=== PATIENT | female | born 1950 | race Caucasian/White ===

== ENCOUNTER 2017-03-30 22:15 | Emergency (ER) | payer MEDICARE, MEDICAID ==
--- NOTE | 2017-03-30 22:42 | Emergency Department Record ---
History of Present Illness - General Chief complaint: ENT Stated complaint: FB RIGHT EAR Time Seen by Provider: 03/30/17 22:42 Source: Patient Mode of Arrival: Ambulatory - History of Present Illness Initial comments: Patient states that she felt a bug in her right ear tonight. She tried to dig it out with her finger with no success. [place] a buzz earlier. None now. No other complaints. MD complaint: Foreign body (right ear) Onset/Timin -: Minutes(s) Location: R ear Consistency: Intermittent Improves with: None Worsens with: None Context- Ear: Other - Related Data Home Medications Medication Instructions Recorded Confirmed Last Taken Aspirin [Aspirin EC] 81 mg PO DAILY 01/15/15 01/02/16 07/03/15 Atorvastatin Calcium [Lipitor] 40 mg PO QHS 01/15/15 01/02/16 07/02/15 Cetirizine HCl [Zyrtec] 10 mg PO DAILY 01/15/15 01/02/16 07/03/15 Cholecalciferol (Vitamin D3) 2,000 unit PO DAILY 01/15/15 01/02/16 07/03/15 [Vitamin D3] Citalopram Hydrobromide [Celexa] 20 mg PO DAILY 01/15/15 01/02/16 07/03/15 Ipratropium [place] [Atrovent Hfa] 2 puff INH QID 01/15/15 01/02/16 07/03/15 Metoprolol Tartrate [Lopressor] 50 mg PO BID 01/15/15 01/02/16 07/03/15 Bupropion HCl [Bupropion HCl Sr] 150 mg PO DAILY 01/02/16 01/02/16 Unknown Allergies Allergy/AdvReac Type Severity Reaction Status Date / Time morphine Allergy Intermediate ALTERED Verified 07/03/15 12:58 MENTAL STATUS Travel Screening - Travel/Exposure Within Last 30 Days Have you traveled within the last 30 days?: No Review of Systems Reviewed: No additional complaints except as noted below Constitutional: Reports: As per HPI. Denies: Chills, Fever, Malaise, Night sweats, Weakness, Weight change Eyes: Reports: As per HPI. Denies: Eye discharge, Eye pain, Photophobia, Vision change ENT: Reports: As per HPI. Denies: Congestion, Dental pain, Ear pain, Epistaxis , Hearing loss, Throat pain Respiratory: Reports: As per HPI. Denies: Cough, Dyspnea, Hemoptysis, Stridor, Wheezes Cardiovascular: Reports: As per HPI. Denies: Arrhythmia, Chest pain, Dyspnea on exertion, Edema, Murmurs, Orthopnea, Palpitations, Paroxysmal nocturnal dyspnea, Rheumatic Fever, Syncope Endocrine: Reports: As per HPI. Denies: Fatigue, Heat or cold intolerance, Polydipsia, Polyuria Gastrointestinal: Reports: As per HPI. Denies: Abdominal pain, Constipation, Diarrhea, Hematemesis, Hematochezia, Melena, Nausea, Vomiting Genitourinary: Reports: As per HPI. Denies: Abnormal menses, Discharge, Dyspareunia, Dysuria, Frequency, Hematuria, Incontinence, Retention, Urgency Musculoskeletal: Reports: As per HPI. Denies: Arthralgia, Back pain, Gout, Joint swelling, Myalgia, Neck pain Skin: Reports: As per HPI. Denies: Bruising, Change in color, Change in hair/ nails, Lesions, Pruritus, Rash Neurological: Reports: As per HPI. Denies: Abnormal gait, Confusion, Headache, Numbness, Paresthesias, Seizure, Tingling, Tremors, Vertigo, Weakness Psychiatric: Reports: As per HPI. Denies: Anxiety, Auditory hallucinations, Depression, Homicidal thoughts, Suicidal thoughts, Visual hallucinations Hematological/Lymphatic: Reports: As per HPI. Denies: Anemia, Blood Clots, Easy bleeding, Easy bruising, Swollen glands Past Medical History - SOCIAL HISTORY Smoking Status: Former smoker Alcohol Use: None Drug Use: None - RESPIRATORY Hx Respiratory Disorders: Yes Hx Asthma: Yes - CARDIOVASCULAR Hx Cardio Disorders: Yes Hx Deep Vein Thrombosis: Yes (2009) Hx Hypertension: Yes - NEURO Hx Neuro Disorders: No - GI Hx GI Disorders: No - Hx Genitourinary Disorders: No - ENDOCRINE Hx Endocrine Disorders: No - MUSCULOSKELETAL Hx Musculoskeletal Disorders: No - PSYCH Hx Psych Problems: No - HEMATOLOGY/ONCOLOGY Hx Hematology/Oncology Disorders: No Family Medical History Any Significant Family History?: Yes Hx HTN: Father, Mother Physical Exam - General General Appearance: Alert, Oriented x3, Cooperative, No acute distress - Head Head exam: Normal inspection - Eye Eye exam: Normal appearance, PERRL Pupils: Normal accommodation - ENT ENT exam: Normal exam, Mucous membranes moist, Normal external ear exam, Normal orophraynx, TM's normal bilaterally (right TM normal with old scarring, NO FB, canal with an eyelash laying midway deep.) Ear exam: Normal external inspection. negative: External canal tenderness Nasal Exam: Normal inspection. negative: Discharge, Sinus tenderness Mouth exam: Normal external inspection, Tongue normal Teeth exam: Normal inspection. negative: Dental caries Throat exam: Normal inspection. negative: Tonsillar erythema, Tonsillar exudate - Neck Neck exam: Normal inspection, Full ROM. negative: Tenderness - Respiratory Respiratory exam: Normal lung sounds bilaterally. negative: Respiratory distress - Cardiovascular Cardiovascular Exam: Regular rate, Normal rhythm, Normal heart sounds - GI/Abdominal GI/Abdominal exam: Soft, Normal bowel sounds. negative: Tenderness - Rectal Rectal exam: Deferred - exam: Deferred - Extremities Extremities exam: Normal inspection, Full ROM, Normal capillary refill. negative: Tenderness - Back Back exam: Reports: Normal inspection, Full ROM. Denies: Muscle spasm, Rash noted, Tenderness - Neurological Neurological exam: Alert, Normal gait, Oriented X3, Reflexes normal - Psychiatric Psychiatric exam: Normal affect, Normal mood - Skin Skin exam: Dry, Intact, Normal color, Warm Course Vital Signs 03/30/17 22:21 Temperature 98.4 F Pulse Rate [ 70 Pulse Ox Probe] Respiratory 20 Rate Blood Pressure 115/65 [Left Arm] Pulse Ox 99 Medical Decision Making - Management Options MDM Management: No Additional Work-up Planned Disposition Disposition: Discharge Clinical Impression: Ear foreign body Qualifiers: Encounter type: initial encounter Laterality: right Qualified Code(s): T16.1XXA - Foreign body in right ear, initial encounter Disposition: Home, Self-Care Condition: (1) Good Instructions: Otitis Externa (ED) Additional Instructions: Apply 2-3 drops three times daily for 5 days. tylenol or ibuprofen as directed as needed for pain. Follow up with PCP as needed. Forms: Patient Portal Access
[2017-03-30] MEDS ORDERED: NEOMYCIN/POLYMYXIN B SULF/HC 10ML BTL OT ONE (22:53)
== END 2017-03-30 23:04 | disposition home or self-care (01) ==
LOC: ER 22:15
DX: T16.1XXA Foreign body in right ear, initial encounter (principal)
CPT/HCPCS: 99282

== ENCOUNTER 2017-10-21 15:18 | Inpatient (IN) | payer MEDICAID, MEDICARE ==
[2017-10-21] MEDS ORDERED: ONDANSETRON HCL IV 4 MG/2 ML VIAL IV ONE (15:47)
[2017-10-21] MEDS ORDERED: 0.9 % SODIUM CHLORIDE 1,000 ML BAG IV ONE ×2 (15:47→19:01)
--- NOTE | 2017-10-21 15:56 | Emergency Department Record ---
History of Present Illness - General Chief complaint: Vomiting Stated complaint: COLD CHILLS,VOMITTING Time Seen by Provider: 10/21/17 15:40 Source: Patient Mode of Arrival: Wheelchair - History of Present Illness Initial comments: The patient has fever, chills, cough, and vomiting that began this afternoon. she also complains of body aches. MD complaint: Nausea, Vomiting Onset/Timin -: Days(s) Description of Vomiting: Food contents Consistency: Intermittent Improves with: None Worsens with: None Associated Symptoms: Cough, Nausea/vomiting - Related Data Home Medications Medication Instructions Recorded Confirmed Last Taken Lisinopril [Zestril] 5 mg PO DAILY 10/21/17 10/21/17 Unknown Allergies Allergy/AdvReac Type Severity Reaction Status Date / Time morphine Allergy Intermediate ALTERED Verified 07/03/15 12:58 MENTAL STATUS Travel Screening - Travel/Exposure Within Last 30 Days Have you traveled within the last 30 days?: No Review of Systems Reviewed: No additional complaints except as noted below Constitutional: Reports: As per HPI. Denies: Chills, Fever, Malaise, Night sweats, Weakness, Weight change Eyes: Reports: As per HPI. Denies: Eye discharge, Eye pain, Photophobia, Vision change ENT: Reports: As per HPI. Denies: Congestion, Dental pain, Ear pain, Epistaxis , Hearing loss, Throat pain Respiratory: Reports: As per HPI. Denies: Cough, Dyspnea, Hemoptysis, Stridor, Wheezes Cardiovascular: Reports: As per HPI. Denies: Arrhythmia, Chest pain, Dyspnea on exertion, Edema, Murmurs, Orthopnea, Palpitations, Paroxysmal nocturnal dyspnea, Rheumatic Fever, Syncope Endocrine: Reports: As per HPI. Denies: Fatigue, Heat or cold intolerance, Polydipsia, Polyuria Gastrointestinal: Reports: As per HPI. Denies: Abdominal pain, Constipation, Diarrhea, Hematemesis, Hematochezia, Melena, Nausea, Vomiting Genitourinary: Reports: As per HPI. Denies: Abnormal menses, Discharge, Dyspareunia, Dysuria, Frequency, Hematuria, Incontinence, Retention, Urgency Musculoskeletal: Reports: As per HPI. Denies: Arthralgia, Back pain, Gout, Joint swelling, Myalgia, Neck pain Skin: Reports: As per HPI. Denies: Bruising, Change in color, Change in hair/ nails, Lesions, Pruritus, Rash Neurological: Reports: As per HPI. Denies: Abnormal gait, Confusion, Headache, Numbness, Paresthesias, Seizure, Tingling, Tremors, Vertigo, Weakness Psychiatric: Reports: As per HPI. Denies: Anxiety, Auditory hallucinations, Depression, Homicidal thoughts, Suicidal thoughts, Visual hallucinations Hematological/Lymphatic: Reports: As per HPI. Denies: Anemia, Blood Clots, Easy bleeding, Easy bruising, Swollen glands Past Medical History - SOCIAL HISTORY Smoking Status: Former smoker Alcohol Use: None Drug Use: None - RESPIRATORY Hx Respiratory Disorders: Yes Hx Asthma: Yes - CARDIOVASCULAR Hx Cardio Disorders: Yes Hx Deep Vein Thrombosis: Yes (2009) Hx Hypertension: Yes - NEURO Hx Neuro Disorders: No - GI Hx GI Disorders: No - Hx Genitourinary Disorders: No - ENDOCRINE Hx Endocrine Disorders: No - MUSCULOSKELETAL Hx Musculoskeletal Disorders: No - PSYCH Hx Psych Problems: No - HEMATOLOGY/ONCOLOGY Hx Hematology/Oncology Disorders: No Family Medical History Any Significant Family History?: Yes Hx HTN: Father, Mother Physical Exam - General General Appearance: Alert, Oriented x3, Cooperative, Mild distress - Head Head exam: Normal inspection - Eye Eye exam: Normal appearance, PERRL, EOMI. negative: Conjunctival injection, Nystagmus Pupils: Normal accommodation - ENT ENT exam: Normal exam, Mucous membranes dry, Mucous membranes moist, Normal external ear exam, Normal orophraynx, TM's normal bilaterally Ear exam: Normal external inspection. negative: External canal tenderness Nasal Exam: Normal inspection. negative: Discharge, Sinus tenderness Mouth exam: Normal external inspection, Tongue normal Teeth exam: Normal inspection. negative: Dental caries Throat exam: Normal inspection. negative: Tonsillar erythema, Tonsillar exudate - Neck Neck exam: Normal inspection, Full ROM. negative: Lymphadenopathy, Meningismus , Tenderness - Respiratory Respiratory exam: Normal lung sounds bilaterally. negative: Accessory muscle use, Chest wall tenderness, Prolonged expiratory, Respiratory distress - Cardiovascular Cardiovascular Exam: Normal rhythm, Normal heart sounds, Tachycardia - GI/Abdominal GI/Abdominal exam: Soft, Normal bowel sounds. negative: Tenderness - Rectal Rectal exam: Deferred - exam: Deferred - Extremities Extremities exam: Normal inspection, Full ROM, Normal capillary refill. negative: Calf tenderness, Pedal edema, Tenderness - Back Back exam: Reports: Normal inspection, Full ROM. Denies: Muscle spasm, Rash noted, Tenderness - Neurological Neurological exam: Alert, Normal gait, Oriented X3, Reflexes normal - Psychiatric Psychiatric exam: Normal affect, Normal mood - Skin Skin exam: Dry, Intact, Normal color, Warm Course Vital Signs 10/21/17 15:40 Temperature 100.5 F H Pulse Rate 129 H Respiratory 20 Rate Blood Pressure 118/83 Pulse Ox 96 - Reevaluation(s) Reevaluation #1: Patient vomited but had not yet had her zofran. Zofran given HR remains rapid at 116. Patient has a dry cough. 10/21/17 17:39 Reevaluation #2: 10/21/17 19:05 d dimer elevated, CTA ordered at shift change. Dr. Alvarez to assume care. Reevaluation #3: Pulse improved to just over 100, CTA cancelled at Dr. Alvarez's request. Will admit. Dr. Bunch who agrees with plan per phone conversation. 10/21/17 19:05 10/21/17 19:09 10/21/17 19:13 Medical Decision Making - Management Options MDM Management: Additional Work-up Planned (e.g. ADM/Transfer/OP Study) (admit to Dr. Bunch full admit) - Data Complexity MDM Data: Labs Ordered and/or Reviewed, X-Ray Ordered and/or Reviewed - Lab Data Result diagrams: 10/21/17 16:00 10/21/17 16:00 Disposition Disposition: Admit Clinical Impression: Fever and chills Sepsis Qualifiers: Sepsis type: sepsis due to unspecified organism Qualified Code(s): A41.9 - Sepsis, unspecified organism Disposition: Still a Patient at [facility] Decision to Admit: Admit from ER Decision to Admit Date: 10/21/17 Decision to Admit Time: 19:18 Accepting Physician: Dr. Bunch Time Discussed w/Accepting Physician: 19:18 Quality - Quality Measures Quality Measures: N/A - Blood Pressure Screening Does Patient Have Any of the Following: No Blood Pressure Classification: Pre-Hypertensive BP Reading Systolic Measurement: 118 Diastolic Measurement: 83 Screening for High Blood Pressure: < Normal BP, F/U Not Required > [[id number]]
[2017-10-21 16:14] LABS: INFLUENZA A NEGATIVE (NEGATIVE); INFLUENZA B NEGATIVE (NEGATIVE)
[2017-10-21 16:14] LABS: HEMATOCRIT 43.6 % (35.0-47.0); HEMOGLOBIN 14.8 gm/dl (11.6-16.0); MEAN CELL VOLUME 95.4 fl (81-97); MEAN CORPUSCULAR HEMOGLOBIN 32.4 pg (27-33); MEAN CORPUSCULAR HGB CONC 33.9 g/dl (32-36); MEAN PLATELET VOLUME 9.6 fl (7.4-10.4); PLATELET COUNT 287 K/uL (130-400); RED BLOOD COUNT 4.57 M/uL (3.80-5.40); RED CELL DISTRIBUTION WIDTH 12.3 % (11.5-14.5); WHITE BLOOD COUNT W/O DIFF 15.9 K/uL (4.2-12.2)
[2017-10-21 16:29] LABS: BLOOD UREA NITROGEN 15 mg/dL (8-23); CREATININE 0.8 mg/dL (0.5-0.9); EST GLOMERULAR FILTRATION RATE > 60 mL/min
[2017-10-21 16:30] LABS: TOTAL PROTEIN 7.8 g/dL (6.6-8.7)
[2017-10-21 16:32] LABS: GLUCOSE,RANDOM 114 mg/dL (74-109)
[2017-10-21 16:34] LABS: ALB/GLOB RATIO 1.2 (1.1-1.8); ALBUMIN 4.3 g/dL (4.0-5.0); ALKALINE PHOSPHATASE 117 U/L (35-104); ALT/SGPT 16 U/L (<33); AST/SGOT 18 U/L (10.0-35.0); LIPASE 44 U/L (13-60)
[2017-10-21] MEDS ORDERED: ACETAMINOPHEN 500 MG TABLET PO ONE (17:00)
[2017-10-21] MEDS ORDERED: CEFTRIAXONE SODIUM 2 GM in 0.9 % SODIUM CHLORIDE 100ML 100 ML IVPB ONE (19:14)
[2017-10-21] MEDS ORDERED: AZITHROMYCIN 500 MG TABLET PO ONE (19:14)
[2017-10-21] MEDS ORDERED: IBUPROFEN 600 MG TABLET PO ONE (19:15)
[2017-10-21 19:17] LABS: URINE BILIRUBIN NEGATIVE (NEGATIVE); URINE BLOOD SMALL (NEGATIVE); URINE COLOR YELLOW; URINE GLUCOSE (UA) NEGATIVE (NEGATIVE); URINE KETONE NEGATIVE (NEGATIVE); URINE LEUKOCYTE ESTERASE SMALL (NEGATIVE); URINE NITRITE POSITIVE (NEGATIVE); URINE PROTEIN TRACE (NEGATIVE); URINE UROBILINOGEN 0.2 E.U./dL (0.20 - 1.00)
[2017-10-21 19:19] LABS: URINE APPEARANCE CLOUDY
[2017-10-21 19:25] LABS: URINE EPITHELIAL CELLS 0 - 2 (FEW); URINE WBC >50 (0-2/hpf)
[2017-10-21 19:26] LABS: URINE BACTERIA 2+
--- NOTE | 2017-10-21 19:46 | RADIOLOGY REPORT ---
EXAM: CHEST 2 VIEWS HISTORY: COUGH, FEVERS, AND CHILLS. TECHNIQUE: PA and lateral upright views of the chest were obtained. COMPARISON: 01/15/2015. FINDINGS: There are low lung volumes. The heart is normal in size. There is calcification of the aorta. The mediastinum and pulmonary vasculature are normal. There are no visible acute infiltrates or effusions. There is no pneumothorax. Degenerative changes are present within the spine and shoulders. There is chronic compression of a single lower thoracic vertebral body. IMPRESSION: 1. LOW LUNG VOLUMES. 2. NO ACUTE CHEST PATHOLOGY. JOB NUMBER: [id number] MTDD
[2017-10-21] MEDS ORDERED: 0.9 % SODIUM CHLORIDE 1000ML 1,000 ML IV PRN (19:57)
[2017-10-21] MEDS ORDERED: CEFTRIAXONE SODIUM 1 GM in 0.9 % SODIUM CHLORIDE 100ML 100 ML IVPB SCH (19:57)
[2017-10-21] MEDS ORDERED: IPRATROPIUM BR 0.02% NEB (0.5MG) INH PRN (21:15)
[2017-10-21] MEDS: METOPROLOL TART 50 MG TABLET PO SCH (21:30)
[2017-10-21] MEDS: ALBUTEROL SULFATE (0.083%) 2.5 MG/3 ML NEB INH SCH (22:10)
[2017-10-22] MEDS: ALBUTEROL SULFATE (0.083%) 2.5 MG/3 ML NEB INH SCH ×2 (05:10→12:30)
[2017-10-22] MEDS: ACETAMINOPHEN 500 MG TABLET PO PRN ×3 (06:12→21:52)
[2017-10-22 06:19] LABS: HEMATOCRIT 40.3 % (35.0-47.0); HEMOGLOBIN 13.7 gm/dl (11.6-16.0); LYMPH % 6.7 % (16-45); MEAN CELL VOLUME 98.1 fl (81-97); MEAN CORPUSCULAR HEMOGLOBIN 33.3 pg (27-33); MEAN PLATELET VOLUME 9.4 fl (7.4-10.4); MONO % 0.7 % (0-9); PLATELET COUNT 269 K/uL (130-400); RED BLOOD COUNT 4.11 M/uL (3.80-5.40); RED CELL DISTRIBUTION WIDTH 12.7 % (11.5-14.5)
[2017-10-22 06:23] LABS: WHITE BLOOD COUNT W/O DIFF 20.6 K/uL (4.2-12.2)
[2017-10-22 06:38] LABS: ALB/GLOB RATIO 1.2 (1.1-1.8); ALBUMIN 3.8 g/dL (4.0-5.0); ALKALINE PHOSPHATASE 99 U/L (35-104); ALT/SGPT 14 U/L (<33); AST/SGOT 17 U/L (10.0-35.0); BLOOD UREA NITROGEN 18 mg/dL (8-23); CREATININE 0.9 mg/dL (0.5-0.9); EST GLOMERULAR FILTRATION RATE > 60 mL/min; GLUCOSE,RANDOM 111 mg/dL (74-109); TOTAL PROTEIN 7.1 g/dL (6.6-8.7)
--- NOTE | 2017-10-22 08:45 | History & Physical ---
History of Present Illness - Date of Service Date of Service for History & Physical: 10/22/17 - History of Present Illness Admitting Diagnosis: Sepsis; fever and chills, respiratory distress History of Present Illness: Edgar is a 66 year-old female who was admitted for UTI sepsis. Her history includes: asthma, ex-smoker, HTN, depression, dvt and tracheostomy and g-tube. She was admitted at [facility] for over 1 month in 2012 for sepsis due to kenny, CMV, and UTI, she was placed on a ventilator for ARDS and eventually required trach and G-tube. She required several months of rehab at a facility in [place]. She was admitted again in 04/2017 for UTI and cardiac workup- she had a negative physiologic stress test. Pt. is unsure of any other pertinent health history. Yesterday afternoon, she began to experience fever, body aches, vomiting, and cough. She presented to the ED and her vital signs were BP 118/83, HR 129, RR 20, 96% on room air and 100.5F. Chest x-ray was unremarkable and negative for infiltrates. Laboratory findings inlcluded: WBC 15.9, d-dimer 1.28, and lactic acid of 3.6. Her urinalysis was positive for leuks. Blood cultures were obtained and urine was sent for culture. She was admitted for management of sepsis from UTI with IV antibiotics. 10/22/17: Pt. is resting comfortably in bed. She presently denies pain, cough, nausea, and vomiting. She states that she does still experience chills. She denies urinary complaints, including dysuria, retention, and urgency. She is concerned about a rash under bilateral breasts. She did have an elevated temp this morning of 99.4F, it was treated with 1000mg tylenol and decreased to 98.3F. Her WBC increased from 15.9 to 20.6 this morning. Plan to continue IV rocephin 1000mg q12h and azithromycin 250mg daily. Ordered repeat lactic acid and lower extremity dopplers today. Travel Screening - Travel/Exposure Within Last 30 Days Have you traveled within the last 30 days?: No - Travel/Exposure Within Last Year Have you traveled outside the [place] in the last year?: No - Additonal Travel Details Have you been exposed to anyone with a communicable illness?: No - Travel Symptoms Symptom Screening: Fever (GT 100.4), Vomiting Review of Systems Constitutional: Reports: Chills, Fever, Malaise, Night sweats. Denies: Weakness , Weight change Eyes: Reports: As per HPI. Denies: Eye discharge, Eye pain, Photophobia, Vision change ENT: Reports: As per HPI. Denies: Congestion, Dental pain, Ear pain, Epistaxis , Hearing loss, Throat pain Respiratory: Reports: Cough. Denies: Dyspnea, Hemoptysis, Stridor, Wheezes Cardiovascular: Reports: As per HPI. Denies: Arrhythmia, Chest pain, Dyspnea on exertion, Edema, Murmurs, Orthopnea, Palpitations, Paroxysmal nocturnal dyspnea, Rheumatic Fever, Syncope Endocrine: Reports: As per HPI. Denies: Fatigue, Heat or cold intolerance, Polydipsia, Polyuria Gastrointestinal: Reports: Nausea, Vomiting. Denies: Abdominal pain, Constipation, Diarrhea, Hematemesis, Hematochezia, Melena Genitourinary: Reports: As per HPI. Denies: Abnormal menses, Discharge, Dyspareunia, Dysuria, Frequency, Hematuria, Incontinence, Retention, Urgency Musculoskeletal: Reports: As per HPI. Denies: Arthralgia, Back pain, Gout, Joint swelling, Myalgia, Neck pain Skin: Reports: As per HPI. Denies: Bruising, Change in color, Change in hair/ nails, Lesions, Pruritus, Rash Neurological: Reports: As per HPI. Denies: Abnormal gait, Confusion, Headache, Numbness, Paresthesias, Seizure, Tingling, Tremors, Vertigo, Weakness Psychiatric: Reports: As per HPI. Denies: Anxiety, Auditory hallucinations, Depression, Homicidal thoughts, Suicidal thoughts, Visual hallucinations Hematological/Lymphatic: Reports: As per HPI. Denies: Anemia, Blood Clots, Easy bleeding, Easy bruising, Swollen glands Past Medical History - SOCIAL HISTORY Smoking Status: Former smoker Alcohol Use: None Drug Use: None - RESPIRATORY Hx Respiratory Disorders: Yes Hx Asthma: Yes - CARDIOVASCULAR Hx Cardio Disorders: Yes Hx Deep Vein Thrombosis: Yes (2009) Hx Hypertension: Yes - NEURO Hx Neuro Disorders: No - GI Hx GI Disorders: No - Hx Genitourinary Disorders: No - ENDOCRINE Hx Endocrine Disorders: No - MUSCULOSKELETAL Hx Musculoskeletal Disorders: No - PSYCH Hx Psych Problems: No - HEMATOLOGY/ONCOLOGY Hx Hematology/Oncology Disorders: No Family Medical History Any Significant Family History?: Yes Hx HTN: Father, Mother H&P Meds/Allergies - Allergies Allergies: Allergies Allergy/AdvReac Type Severity Reaction Status Date / Time morphine Allergy Intermediate ALTERED Verified 07/03/15 12:58 MENTAL STATUS - Home Medications Home Medications Medication Instructions Recorded Confirmed Last Taken Lisinopril [Zestril] 5 mg PO DAILY 10/21/17 10/21/17 Unknown - Active Medications Active Medications: Current Medications Acetaminophen (Tylenol 500mg Tab) 1,000 mg PO Q6H PRN PRN Reason: PAIN/TEMP Last Admin: 10/22/17 06:12 Dose: 1,000 mg Albuterol Sulfate () 2.5 mg INH RESP.Q4H.[facility] Last Admin: 10/22/17 05:10 Dose: 2.5 mg Aspirin (Ecotrin (Ec)) 81 mg PO DAILY [facility] Azithromycin (Zithromax) 500 mg PO DAILY [facility] Citalopram Hydrobromide (Celexa) 40 mg PO DAILY [facility] Sodium Chloride () 1,000 mls @ 125 mls/hr IV .Q8H PRN PRN Reason: LARGE VOLUME IV Ceftriaxone Sodium 1 gm/ (Sodium Chloride) 100 mls @ 100 mls/hr IVPB Q24H [facility] Stop: 10/27/17 20:01 Ipratropium [place] (Atrovent 0.02% Neb) 2.5 ml INH Q6H PRN PRN Reason: Bronchospasm Lisinopril (Zestril) 5 mg PO DAILY [facility] Metoprolol Tartrate (Lopressor) 50 mg PO BID [facility] Last Admin: 10/21/17 21:30 Dose: 50 mg Physical Exam - Vital Signs Vital Signs: Vital Signs - Last 24 Hrs Temp Pulse Pulse Pulse Resp BP BP 10/22/17 07:44 98.3 F 83 18 120/55 10/22/17 06:16 99.4 F 10/22/17 05:53 96.1 F L 10/22/17 05:10 68 20 10/21/17 22:10 67 20 10/21/17 21:00 74 78 18 10/21/17 20:10 99.5 F 106 H 18 103/66 10/21/17 19:59 100.0 F H 98 H 20 94/64 Pulse Ox 10/22/17 07:44 95 10/22/17 06:16 01/23/18 05:53 10/22/17 05:10 10/21/17 22:10 10/21/17 21:00 10/21/17 20:10 98 10/21/17 19:59 96 - General General Appearance: Alert, Oriented x3, Cooperative, No acute distress, Other ( poor historian) Limitations: No limitations - Head Head exam: Normal inspection - Eye Eye exam: Normal appearance, PERRL, EOMI. negative: Conjunctival injection, Nystagmus Pupils: Normal accommodation - ENT ENT exam: Normal exam, Mucous membranes moist, Normal external ear exam, Normal orophraynx Ear exam: Normal external inspection. negative: External canal tenderness Nasal Exam: Normal inspection. negative: Discharge, Sinus tenderness Mouth exam: Normal external inspection, Tongue normal Teeth exam: Normal inspection. negative: Dental caries Throat exam: Normal inspection. negative: Tonsillar erythema, Tonsillar exudate - Neck Neck exam: Normal inspection. negative: Lymphadenopathy, Meningismus, Tenderness - Respiratory Respiratory exam: Normal lung sounds bilaterally. negative: Accessory muscle use, Chest wall tenderness, Prolonged expiratory, Respiratory distress - Cardiovascular Cardiovascular Exam: Normal rhythm, Normal heart sounds - GI/Abdominal GI/Abdominal exam: Soft, Normal bowel sounds. negative: Tenderness - Rectal Rectal exam: Deferred - exam: Deferred - Extremities Extremities exam: Normal inspection, Full ROM, Normal capillary refill. negative: Calf tenderness, Pedal edema, Tenderness - Back Back exam: Reports: Normal inspection, Full ROM. Denies: Muscle spasm, Rash noted, Tenderness - Neurological Neurological exam: Alert, Normal gait, Oriented X3, Reflexes normal - Psychiatric Psychiatric exam: Normal affect, Normal mood - Skin Skin exam: Intact, Rash, Warm Type of lesion: Rash Distribution of rash: Other (under bilateral breasts and groin ) Description of rash: Erythematous. negative: Discharge, Tenderness Results - Labs Result Diagrams: 10/22/17 06:12 10/22/17 06:12 Labs Last 24 Hours: Laboratory Results - last 24 hr 10/22/17 10/22/17 06:12 06:12 WBC 20.6 H* RBC 4.11 Hgb 13.7 Hct 40.3 MCV 98.1 H MCH 33.3 H MCHC 34.0 RDW 12.7 Plt Count 269 MPV 9.4 Neutrophils % 90.0 H Band Neutrophils % 0.0 Lymphocytes % 6.7 L Monocytes % 0.7 Eosinophils % 0.0 Basophils % 0.0 Lymphocytes 9.0 L Monocytes 1.0 Basophils 0.0 Eosinophil Count 0.0 Sodium 141 Potassium 4.0 Chloride 104 Carbon Dioxide 21.0 L Anion Gap 16.0 BUN 18 Creatinine 0.9 Estimated GFR > 60 Random Glucose 111 H Calcium 8.2 L Total Bilirubin 0.50 AST 17 ALT 14 Alkaline Phosphatase 99 Total Protein 7.1 Albumin 3.8 L Globulin 3.3 Albumin/Globulin Ratio 1.2 VTE H&P Assessment - Risk for VTE Risk for VTE: Yes Risk Level: Moderate Risk Assessment Date: 10/22/17 (history of DVT in 2012) Risk Assessment Time: 10:55 VTE Orders Placed or Will Be Placed: Yes Plan - Inpatient Certification Inpatient Certification: Admit to inpatient care: Based on my medical assessment, after consideration of patient's risk factors (age, co-morbidities and patient presenting symptoms and acuity), I expect that this patient will remain in the hospital greater than or equal to two midnights and that the services needed warrant inpatient care because: Patient Risk Factors: [history of urosepsis and respiratory failure] Estimated length of stay: [48-72 hours] The patient may reasonably be expected to be discharged or transferred to a hospital within 96 hours after admission to [facility]. Services needed: [iv antibiotics, lab and cardiac monitoring] Post hospital care (if known): [] I certify that my determination is in accordance with my understanding of Medicare requirements for reasonable and necessary inpatient services. 10/22/17 11:21 - Detailed Diagnosis and Plan (1) Sepsis secondary to UTI Current Visit: Yes Status: Acute Base Code: A41.9 - SEPSIS, UNSPECIFIED ORGANISM; N39.0 - URINARY TRACT INFECTION, SITE NOT SPECIFIED Priority: High Comment: 10/22/17: Positive UA in ED on 10/21 (trace protein, small blood, pos nitrates, small leuks). Urine was sent for culture. WBC elevated from 15.9 in ED to 20.6 today. Pt. has been intermittently febrile- 99.4 this morning, treated with tylenol. Continue IV antibiotics: rocephin 1gm q12h and azithromycin 500mg qd. Continue 0.9% NaCl at 125ml/hr. (2) Yeast infection of the skin Current Visit: Yes Status: Acute Base Code: B37.2 - CANDIDIASIS OF SKIN AND NAIL Comment: 10/22/17: Yeast rash under bilateral breasts and groin folds. Start nystatin powder 2-3 times dialy. (3) Asthma Current Visit: Yes Status: Acute Base Code: J45.909 - UNSPECIFIED ASTHMA, UNCOMPLICATED Comment: 10/22/17: Pt. presented to ED on 10/21 with cough, uses atrovent hfa 2 puffs qid prn cough for asthma at home. Chest x-ray in ED negative for infiltrates. Cough has now resolved, however, continuing inh: scheduled albuterol 2.5mg q4h inh and atrovent hfa inh q6h prn. (4) At risk for deep venous thrombosis Current Visit: Yes Status: Acute Base Code: Z91.89 - OTH PERSONAL RISK FACTORS, NOT ELSEWHERE CLASSIFIED Priority: High Comment: 10/22/17- Elevated D dimer in ED on 10/21: 1.28. 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 Pt. currently denies any extremity pain/ tenderness/swelling. LE venous dopplers ordered today. Will start lovenox 40mg sc daily. (5) Full code status Current Visit: Yes Status: Acute Base Code: Z78.9 - OTHER SPECIFIED HEALTH STATUS Comment: 10/22/17- Pt. is full code status
[2017-10-22] MEDS: AZITHROMYCIN 500 MG TABLET PO SCH (09:43)
[2017-10-22] MEDS: ASPIRIN 81 MG TABEC PO SCH (09:43)
[2017-10-22] MEDS: CITALOPRAM 20 MG TABLET PO SCH (09:43)
[2017-10-22] MEDS: METOPROLOL TART 50 MG TABLET PO SCH ×2 (09:43→21:13)
[2017-10-22] MEDS: LISINOPRIL 5 MG TABLET PO SCH (09:45)
[2017-10-22] MEDS ORDERED: CITALOPRAM 20 MG TABLET PO SCH (10:00)
[2017-10-22] MEDS: ALBUTEROL HFA 8 GM INHALER INH SCH ×4 (10:24→22:03)
[2017-10-22] MEDS ORDERED: NYSTATIN 15 GM POWDER TP PRN (10:38)
[2017-10-22] MEDS: ENOXAPARIN 40 MG/0.4 ML SYR SQ SCH (12:06)
[2017-10-22] MEDS: CEFTRIAXONE SODIUM 1 GM in 0.9 % SODIUM CHLORIDE 100ML 100 ML IVPB SCH ×2 (13:35→21:13)
[2017-10-22] MEDS ORDERED: CEFTRIAXONE SODIUM 1 GM in 0.9 % SODIUM CHLORIDE 100ML 100 ML IVPB SCH (20:00)
[2017-10-22] MEDS ORDERED: DIPHENHYDRAMINE HCL 25 MG CAPSULE PO PRN (23:38)
[2017-10-23] MEDS: ACETAMINOPHEN 500 MG TABLET PO PRN ×3 (03:52→19:28)
[2017-10-23] MEDS: ALBUTEROL HFA 8 GM INHALER INH SCH ×5 (05:45→22:27)
[2017-10-23 06:38] LABS: BASO % 0.1 % (0-6); EOS % 0.5 % (0-6); HEMATOCRIT 34.3 % (35.0-47.0); HEMOGLOBIN 11.1 gm/dl (11.6-16.0); LYMPH % 15.7 % (16-45); MEAN CELL VOLUME 99.7 fl (81-97); MEAN CORPUSCULAR HGB CONC 32.4 g/dl (32-36); MEAN PLATELET VOLUME 10.2 fl (7.4-10.4); MONO % 7.7 % (0-9); PLATELET COUNT 223 K/uL (130-400); RED BLOOD COUNT 3.44 M/uL (3.80-5.40); RED CELL DISTRIBUTION WIDTH 13.1 % (11.5-14.5); WHITE BLOOD COUNT W/O DIFF 16.2 K/uL (4.2-12.2)
[2017-10-23 06:43] LABS: MEAN CORPUSCULAR HEMOGLOBIN 32.2 pg (27-33)
[2017-10-23 07:14] LABS: ALB/GLOB RATIO 1.1 (1.1-1.8); ALBUMIN 2.9 g/dL (4.0-5.0); ALKALINE PHOSPHATASE 77 U/L (35-104); ALT/SGPT 11 U/L (<33); AST/SGOT 11 U/L (10.0-35.0); BLOOD UREA NITROGEN 9 mg/dL (8-23); CREATININE 0.7 mg/dL (0.5-0.9); EST GLOMERULAR FILTRATION RATE > 60 mL/min; GLUCOSE,RANDOM 89 mg/dL (74-109); TOTAL PROTEIN 5.6 g/dL (6.6-8.7)
[2017-10-23] MEDS: ASPIRIN 81 MG TABEC PO SCH (09:08)
[2017-10-23] MEDS: METOPROLOL TART 50 MG TABLET PO SCH ×3 (09:08→21:57)
[2017-10-23] MEDS: ENOXAPARIN 40 MG/0.4 ML SYR SQ SCH (09:08)
[2017-10-23] MEDS: CITALOPRAM 20 MG TABLET PO SCH (09:08)
[2017-10-23] MEDS: AZITHROMYCIN 500 MG TABLET PO SCH (09:09)
[2017-10-23] MEDS: CEFTRIAXONE SODIUM 1 GM in 0.9 % SODIUM CHLORIDE 100ML 100 ML IVPB SCH ×2 (09:11→21:56)
[2017-10-23] MEDS: LISINOPRIL 5 MG TABLET PO SCH (09:14)
--- NOTE | 2017-10-23 10:38 | US VENOUS DOPPLER REPORT ---
EXAM: BILATERAL VENOUS DOPPLER ULTRASOUND OF THE LOWER EXTREMITIES HISTORY: ELEVATED D-DIMER, SHARP PAINS IN BOTH FEET, HISTORY OF PRIOR RIGHT SIDED DVT. TECHNIQUE: Venous Doppler ultrasound of the lower extremities was performed bilaterally. Color flow and spectral analysis was utilized throughout with compression and flow augmentation maneuvers utilizing the thigh and popliteal regions bilaterally. Comparison: None. FINDINGS: On the right, flow is seen throughout with no evidence of DVT. Compressibility and flow augmentation seen within the thigh and popliteal region as well. On the left, flow is also seen throughout. Flow augmentation and compressibility was evident in the thigh and popliteal regions as well. The venous anatomy was evaluated from the inguinal regions down to the ankles bilaterally. IMPRESSION: NEGATIVE VENOUS DOPPLER ULTRASOUND OF THE LOWER EXTREMITIES BILATERALLY WITH NO EVIDENCE OF DVT ON EITHER SIDE. JOB NUMBER: [id number] MTDD
[2017-10-24 00:07] LABS: ARTERIAL BLD GAS O2 SATURATION 91.2 % (95-98); ARTERIAL BLOOD GAS BASE EXCESS -2.9 mmol/L (-2 - 3); ARTERIAL BLOOD GAS HCO3 21.3 mmol/L (18-23); ARTERIAL BLOOD GAS PCO2 36.7 mmHg (35-48); ARTERIAL BLOOD GAS pH 7.38 (7.35-7.45); CARBOXYHEMOGLOBIN 1.5 % (0-1.5); METHEMOGLOBIN 0.4 % (0.0-1.5); O2 HEMOGLOBIN 89.5 % vol (94-99); TOTAL HEMOGLOBIN 11.3 g/dl (11.6-16)
[2017-10-24 00:08] LABS: ALLEN TEST PASS
[2017-10-24] MEDS ORDERED: IPRATROPIUM/ALBUTEROL (0.5MG/3MG) NEB INH ONE (00:33)
--- NOTE | 2017-10-24 00:52 | Discharge Summary ---
Providers Discharge Summary Date: 10/24/17 Date of admission: 10/21/17 19:50 Expected Date of Discharge: 10/24/17 Attending physician: Art Garcia Physical Exam - Vital Signs Vital Signs: Vital Signs - Last 24 Hrs Temp Pulse Pulse Pulse Resp BP Pulse Ox 10/23/17 22:28 88 16 10/23/17 22:00 99.2 F 78 18 157/75 93 L 10/23/17 21:00 90 94 H 20 10/23/17 20:00 100.5 F H 145 H 18 160/81 92 L 10/23/17 18:01 78 16 90 L 10/23/17 15:07 84 16 10/23/17 09:14 70 16 97 10/23/17 08:28 59 L 55 L 18 10/23/17 08:00 99.0 F 71 18 147/69 98 - General General Appearance: Other (did not perform physical exam as I was not in house during patient's acute care transfer) Hospitalization - Hospitalization Admission Diagnosis: Sepsis; fever and chills, respiratory distress - Problem List/Discharge Diagnosis (1) Acute respiratory distress Status: Acute Base Code: R06.03 - ACUTE RESPIRATORY DISTRESS Comment: : patient became hypoxic this evening around midnight. Repeat CXR revealed: diffuse b/l pulm infiltrates. AB.38, PCO2 36.7, PO2 52, HCO3 21.3. Dr. Alvarez, our ED physician, gave a breathing treatment and placed pt on BIPAP. work of breathing improved. O2 up to 95% on BIPAP. Dr. Alvarez and I both spoke with Dr. Molina from [facility] who accepted patient to their SDU. Patient stable for discharge. She was transported w/ BIPAP. (2) Asthma Status: Acute Base Code: J45.909 - UNSPECIFIED ASTHMA, UNCOMPLICATED Comment : 10/24/17: Pt. presented to ED on 10/21 with cough, uses atrovent hfa 2 puffs qid prn cough for asthma at home. Chest x-ray in ED negative for infiltrates. patient became hypoxic this evening. Repeat CXR revealed: b/l diffuse pulm infiltrates . AB.38, PCO2 36.7, PO2 52, HCO3 21.3. Dr. Alvarez, our ED physician, gave a breathing treatment and placed pt on BIPAP. work of breathing improved. Dr. Alvarez and I both spoke with Dr. Molina from [facility] who accepted patient to their SDU. Patient stable for discharge. She was transported w/ BIPAP. (3) Sepsis secondary to UTI Status: Acute Base Code: A41.9 - SEPSIS, UNSPECIFIED ORGANISM; N39.0 - URINARY TRACT INFECTION, SITE NOT SPECIFIED Comment: 10/24/17: Positive UA in ED on 10/21 (trace protein, small blood, pos nitrates, small leuks). Urine culture pending. WBC 20.6- 16.2. Pt intermittently febrile- 99.4 this morning , treated with tylenol. Continue IV antibiotics: rocephin 1gm q12h and azithromycin 500mg qd. Continue IVFs. (4) Yeast infection of the skin Status: Acute Base Code: B37.2 - CANDIDIASIS OF SKIN AND NAIL Comment: : nystatin powder 2-3 times dialy. (5) Full code status Status: Acute Base Code: Z78.9 - OTHER SPECIFIED HEALTH STATUS Comment: 10/24- full code - Hospitalization Course Disposition: Acute Care Hospital Transfer Hospital Course: Edgar is a 66 year-old female who was admitted for UTI sepsis. Her history includes: asthma, ex-smoker, HTN, depression, dvt and tracheostomy and g-tube. She was admitted at [facility] for over 1 month in 2012 for sepsis due to kenny , CMV, and UTI, she was placed on a ventilator for ARDS and eventually required trach and G-tube. She required several months of rehab at a facility in [place]. She was admitted again in 04/2017 for UTI and cardiac workup- she had a negative physiologic stress test. Pt. is unsure of any other pertinent health history. Yesterday afternoon, she began to experience fever, body aches, vomiting, and cough. She presented to the ED and her vital signs were BP 118/83, HR 129, RR 20, 96% on room air and 100.5F. Chest x-ray was unremarkable and negative for infiltrates. Laboratory findings inlcluded: WBC 15.9, d-dimer 1.28, and lactic acid of 3.6. Her urinalysis was positive for leuks. Blood cultures were obtained and urine was sent for culture. She was admitted for management of sepsis from UTI with IV antibiotics. 10/22/17- Pt. is resting comfortably in bed. She presently denies pain, cough, nausea, and vomiting. She states that she does still experience chills. She denies urinary complaints, including dysuria, retention, and urgency. She is concerned about a rash under bilateral breasts. She did have an elevated temp this morning of 99.4F, it was treated with 1000mg tylenol and decreased to 98.3F. Her WBC increased from 15.9 to 20.6 this morning. Plan to continue IV rocephin 1000mg q12h and azithromycin 250mg daily. Ordered repeat lactic acid and lower extremity dopplers today. 10/23 10:00 am- patient lying in bed. states she's tired as she did not sleep well on the bed the night before. states she had a sore throat in the middle of the night but it resolved. she denies cough, sob, william, fever, chills, n/v, abd pain, calf pain or dysuria. She feels nystatin powder is helping with rash under both breasts. 10/23 1300- patient evaluated by Brandy, a DRIVER EDUCATION INSTRUCTOR working on the floor with me. Pt told Brandy that her cough had returned and she was having rib pain from coughing. 10/24 1:00 am- Patient's nurse called me around mid night indicating patient was having a hard time breathing and HR was increasing. Stat CXR and ABG ordered. Resp raven and Dr. Alvarez in the ER called to see patient immediately. Patient responded well to a breathing treatment and placed on BIPAP where patient had decreased work of breathing. She was then sating at 95% on BIPAP. CXR revealed ARDS according to Dr. Alvarez. Dr. Molina from [facility] spoke to myself and Dr. Alvarez over the phone and accepts patient for acute care transfer to SDU. Patient will be transferring by EMS with BIPAP. Procedures: Imaging and X-Rays 10/22/17 11:17 VENOUS DOPPLER LOWER EXT SHU [US] Stat 10/23/17 23:51 CHEST 1 VIEW [RAD] Stat Abnormal Labs: Abnormal Lab Results 10/22/17 10/22/17 10/22/17 Range/Units 06:12 06:12 12:35 WBC 20.6 H* (4.2-12.2) K/uL RBC (3.80-5.40) M/uL Hgb (11.6-16.0) gm/dl Hct (35.0-47.0) % MCV 98.1 H (81-97) fl MCH 33.3 H (27-33) pg Neutrophils % 90.0 H (47-80) % Lymphocytes % 6.7 L (16-45) % Lymphocytes 9.0 L (16-45) % pO2 (83-108) mmHg Oxyhemoglobin (94-99) % vol ABG O2 Saturation (95-98) % ABG Base Excess (-2 - 3) mmol/L Total Hemoglobin (11.6-16) g/dl Actual Respiration Rate (10-18) /MIN FiO2 (21-21) % Chloride (98-107) mmol/L Carbon Dioxide 21.0 L (22-29) mmol/L Random Glucose 111 H (74-109) mg/dL Lactic Acid 2.3 H (0.5-2.2) mmol/L Calcium 8.2 L (8.8-10.2) mg/dL Total Protein (6.6-8.7) g/dL Albumin 3.8 L (4.0-5.0) g/dL 10/23/17 10/23/17 10/23/17 Range/Units 06:10 06:10 23:50 WBC 16.2 H (4.2-12.2) K/uL RBC 3.44 L (3.80-5.40) M/uL Hgb 11.1 L (11.6-16.0) gm/dl Hct 34.3 L (35.0-47.0) % MCV 99.7 H (81-97) fl MCH (27-33) pg Neutrophils % (47-80) % Lymphocytes % 15.7 L (16-45) % Lymphocytes (16-45) % pO2 52.0 L (83-108) mmHg Oxyhemoglobin 89.5 L (94-99) % vol ABG O2 Saturation 91.2 L (95-98) % ABG Base Excess -2.9 L (-2 - 3) mmol/L Total Hemoglobin 11.3 L (11.6-16) g/dl Actual Respiration Rate 32.0 H (10-18) /MIN FiO2 50.0 H (21-21) % Chloride 109 H (98-107) mmol/L Carbon Dioxide 20.0 L (22-29) mmol/L Random Glucose (74-109) mg/dL Lactic Acid (0.5-2.2) mmol/L Calcium 7.8 L (8.8-10.2) mg/dL Total Protein 5.6 L (6.6-8.7) g/dL Albumin 2.9 L (4.0-5.0) g/dL Condition at Discharge: (2) Stable Discharge Medications - Discharge Medications Home Medications: Ambulatory Orders Aspirin [Aspirin EC] 81 mg PO DAILY 01/15/15 [Last Taken 07/03/15] Citalopram Hydrobromide [Celexa] 40 mg PO DAILY 01/15/15 [Last Taken 10/21/17 40mg] Ipratropium [place] [Atrovent Hfa] 2 puff INH QID PRN 01/15/15 [Last Taken 07/03] Metoprolol Tartrate [Lopressor] 50 mg PO BID 01/15/15 [Last Taken 07/03/15] Lisinopril [Zestril] 5 mg PO DAILY 10/21/17 [Last Taken Unknown] Discharge Plan - Discharge Instructions Activity at Discharge: Other (per MGL) Quality Measures - Quality Measures Quality Measures: Advance Directives, Documentation of Current Medications in Medical Record, Elder Maltreatment Screen and Follow-Up Plan, Screening for High Blood Pressure and F/U Documented - Current Medications Quality Measure: Measure #130: Documentation of Current Medications Documentation of Current Medications: <Current Medications Documented/Reviewed> [G3619] - Blood Pressure Screening Quality Measure: Screening for High Blood Pressure and Follow-Up Documented Does Patient Have Any of the Following: Active Dx of HTN Blood Pressure Classification: Normal BP Reading Systolic Measurement: 94 Diastolic Measurement: 64 Screening for High Blood Pressure: Patient Exclusion, Hx of HTN [G9744] - Advance Directives Quality Measure: Measure #47: Care Plan Advance Directives Established: No Advance Directives Information Provided To Patient: No Advance Directives on File: No Living Will: No Power of Instructor Psychiatric Aide: No Advance Care Planning: <Care Plan/Decision Maker Documented; Discussed & Documented> [0329F] - Elder Abuse Suspicion Index Screening: Elder Abuse Suspicion Index Screening Rely on people for bathing, dressing, shopping, banking, etc: No Prevented from getting food, clothes, medication, etc: No Made to feel shamed or threatened by someone: No Forced to sign papers or use money against will: No Feel afraid, touched in ways not wanted or hurt physically: No Poor eye contact, withdrawn, malnourished, cuts or bruises: No Screening Result: Negative result EASI Reference Information: Husam BLUNT, Erlinda Moncada, Jasmine Ventura, Andrea Wolfe.Development and validation of a tool to assist physicians identification of elder abuse: The Elder Abuse Suspicion Index (EASI ). Journal of Elder Abuse and Neglect, 2008; 20 (3): 276-300. - Elder Maltreatment Screen Quality Measures: Elder Maltreatment Screen and Follow-Up Plan Elder Maltreatment Screen: <Negative, No Follow-Up Plan Required> [G8734]
[2017-10-24] MEDS ORDERED: AZITHROMYCIN 250 MG TABLET PO SCH (10:00)
--- NOTE | 2017-10-24 10:45 | RADIOLOGY REPORT ---
EXAM: CHEST, SINGLE VIEW HISTORY: SHORTNESS OF BREATH. TECHNIQUE: A single AP view of the chest was obtained. Comparison: Two view chest 10/21/17. FINDINGS: There is extensive progressive bilateral infiltrate compared with the prior study. This could represent acute pulmonary edema, bilateral pneumonitis, or even alveolar hemorrhage in the appropriate clinical setting. Cardiomegaly. No definite pleural effusion or pneumothorax identified. IMPRESSION: PROGRESSIVE FAIRLY DIFFUSE BILATERAL PULMONARY INFILTRATE SINCE 10/21/17. FOLLOW -UP FILMS SUGGESTED. JOB NUMBER: [id number] [facility]
--- NOTE | 2017-10-24 12:01 | Physician Progress Note ---
Subjective - Date Date of Physician Progress Note: 10/23/17 - Subjective Subjective Comment: Pt. states that she has still been experiencing chills and she has also developed a cough today. She states she has been coughing up thick, yellow sputum. She also complains of loose stools that began this morning. She has had a total of 4 loose stools today. Associated symptoms: Cough, Fever/chills Objective - Vital Signs Vital Signs: Vital Signs - Last 24 Hrs Temp Pulse Pulse Pulse Resp BP Pulse Ox 10/23/17 22:28 88 16 10/23/17 22:00 99.2 F 78 18 157/75 93 L 10/23/17 21:00 90 94 H 20 10/23/17 20:00 100.5 F H 145 H 18 160/81 92 L 10/23/17 18:01 78 16 90 L 10/23/17 15:07 84 16 - General General Appearance: Other (did not perform physical exam as I was not in house during patient's acute care transfer) Limitations: No limitations - Head Head exam: Normal inspection - Eye Eye exam: Normal appearance, PERRL, EOMI. negative: Conjunctival injection, Nystagmus Pupils: Normal accommodation - ENT ENT exam: Normal exam, Mucous membranes moist, Normal external ear exam, Normal orophraynx Ear exam: Normal external inspection. negative: External canal tenderness Nasal Exam: Normal inspection. negative: Discharge, Sinus tenderness Mouth exam: Normal external inspection, Tongue normal Teeth exam: Normal inspection. negative: Dental caries Throat exam: Normal inspection. negative: Tonsillar erythema, Tonsillar exudate - Neck Neck exam: Normal inspection. negative: Lymphadenopathy, Meningismus, Tenderness - Respiratory Respiratory exam: Normal lung sounds bilaterally. negative: Accessory muscle use, Chest wall tenderness, Prolonged expiratory, Respiratory distress, Rhonchi , Wheezes - Cardiovascular Cardiovascular Exam: Normal rhythm, Normal heart sounds - GI/Abdominal GI/Abdominal exam: Soft, Normal bowel sounds. negative: Tenderness - Rectal Rectal exam: Deferred - exam: Deferred - Extremities Extremities exam: Normal inspection, Full ROM, Normal capillary refill. negative: Calf tenderness, Pedal edema, Tenderness - Back Back exam: Reports: Normal inspection, Full ROM. Denies: Muscle spasm, Rash noted, Tenderness - Neurological Neurological exam: Alert, Normal gait, Oriented X3, Reflexes normal - Psychiatric Psychiatric exam: Normal affect, Normal mood - Skin Skin exam: Intact, Rash, Warm Type of lesion: Rash Distribution of rash: Other (under bilateral breasts and groin ) Description of rash: Erythematous. negative: Discharge, Tenderness Assessment and Plan - Assessment and Plan (1) Sepsis secondary to UTI Status: Acute Base Code: A41.9 - SEPSIS, UNSPECIFIED ORGANISM; N39.0 - URINARY TRACT INFECTION, SITE NOT SPECIFIED Priority: High Comment: 10/24/17 : Positive UA in ED on 10/21 (trace protein, small blood, pos nitrates, small leuks). Urine culture pending. WBC 20.6- 16.2. Pt intermittently febrile- 99.4 this morning, treated with tylenol. Continue IV antibiotics: rocephin 1gm q12h and azithromycin 500mg qd. Continue IVFs. (2) Yeast infection of the skin Status: Acute Base Code: B37.2 - CANDIDIASIS OF SKIN AND NAIL Comment: : nystatin powder 2-3 times dialy. (3) Asthma Status: Acute Base Code: J45.909 - UNSPECIFIED ASTHMA, UNCOMPLICATED Comment : 10/24/17: Pt. presented to ED on 10/21 with cough, uses atrovent hfa 2 puffs qid prn cough for asthma at home. Chest x-ray in ED negative for infiltrates. patient became hypoxic this evening. Repeat CXR revealed: . AB.38, PCO2 36.7, PO2 52, HCO3 21.3. Dr. Alvarez, our ED physician, gave a breathing treatment and placed pt on BIPAP. work of breathing improved. Dr. Alvarez and I both spoke with Dr. Molina from [facility] who accepted patient to their SDU. Patient stable for discharge. She was transported w/ BIPAP. (4) Diarrhea Status: Acute Base Code: R19.7 - DIARRHEA, UNSPECIFIED Comment: 10/23/17: pt. has developed loose stools this morning, she denies abdominal pain/ cramping. She denies decreased appetite. Plan to obtain stool cultures. (5) At risk for deep venous thrombosis Status: Acute Base Code: Z91.89 - OTH PERSONAL RISK FACTORS, NOT ELSEWHERE CLASSIFIED Priority: High Comment: 10/23/17- Lovenox 40mg sc daily. Bilateral LE dopplers negative. (6) Full code status Status: Acute Base Code: Z78.9 - OTHER SPECIFIED HEALTH STATUS Comment: 10/24- full code Results - Labs Result Diagrams: 10/23/17 06:10 10/23/17 06:10 Labs Last 24 Hours: Laboratory Results - last 24 hr 10/23/17 10/24/17 10/24/17 23:50 06:00 06:00 WBC Cancelled Corrected WBC Cancelled RBC Cancelled Hgb Cancelled Hct Cancelled MCV Cancelled MCH Cancelled MCHC Cancelled RDW Cancelled Plt Count Cancelled MPV Cancelled Gran % Cancelled Lymphocytes % Cancelled Monocytes % Cancelled Eosinophils % Cancelled Basophils % Cancelled Puncture Site Right wrist pCO2 36.7 pO2 52.0 L HCO3 21.3 Oxyhemoglobin 89.5 L ABG pH 7.38 ABG O2 Saturation 91.2 L ABG Base Excess -2.9 L Howard Test Pass Carboxyhemoglobin 1.5 Methemoglobin 0.4 Total Hemoglobin 11.3 L Actual Respiration Rate 32.0 H FiO2 50.0 H Sodium Cancelled Potassium Cancelled Chloride Cancelled Carbon Dioxide Cancelled Anion Gap Cancelled BUN Cancelled Creatinine Cancelled Estimated GFR Cancelled Random Glucose Cancelled Calcium Cancelled Total Bilirubin Cancelled AST Cancelled ALT Cancelled Alkaline Phosphatase Cancelled Total Protein Cancelled Albumin Cancelled Globulin Cancelled Albumin/Globulin Ratio Cancelled DVT/PE Assessment - Risk for VTE Risk for VTE: Yes Risk Level: Moderate Risk Assessment Date: 10/22/17 (history of DVT in 2012) Risk Assessment Time: 10:55 VTE Orders Placed or Will Be Placed: Yes AMI Plan - Labs Result Diagrams: 10/23/17 06:10 10/23/17 06:10
== END 2017-10-24 01:50 | disposition short-term general hospital (02) | DRG 690 ==
LOC: ER 15:18 → MEDSURG 19:50
PROVIDERS: ADMIT Internal Medicine; ATTEND Internal Medicine
PROC: 5A09357 Assistance with Respiratory Ventilation, Less than 24 Consecutive Hours, Continuous Positive Airway Pressure (ICD-10-PCS; principal; 2017-10-21)
DX: R50.9 Fever, unspecified (principal); N39.0 Urinary tract infection, site not specified; B96.20 Unspecified Escherichia coli [E. coli] as the cause of diseases classified elsewhere; I10 Essential (primary) hypertension; J45.909 Unspecified asthma, uncomplicated; B37.2 Candidiasis of skin and nail; Z86.718 Personal history of other venous thrombosis and embolism; Z87.891 Personal history of nicotine dependence; R11.2 Nausea with vomiting, unspecified; R06.03 Acute respiratory distress
CPT/HCPCS: 93041; 99285 ×2; 96365; 96375; 83605; 83690; 80053; 81001; 87400; 85379; 85027; 71046; J2405; 36600; 71045; 82375; 82803; 83036; 85025; 93970; 94640; 94660; 94761; 99223; 99233; 99239; J1650; J7030; J7613